=== PATIENT | female | born 1950 | race Caucasian/White ===

== ENCOUNTER 2018-11-11 12:45 | Day surgery (SDC) | payer OTHER ==
[2018-11-11] MEDS ORDERED: LIDOCAINE 1% 2 ML INJ ID PRN (13:12)
[2018-11-11] MEDS ORDERED: LR 1,000 ML IV ONE (13:12)
[2018-11-11] MEDS ORDERED: INDOMETHACIN 50 MG SUPP PR PRN (13:32)
--- NOTE | 2018-11-11 13:32 | PDGENHP ---
History & Physical Chief Complaint: biliary obstruction History of Present Illness: 68 year old female presents for jaundice, RUQ abdominal pain, weight loss, and nausea. Pertinent Past, Social, Family History: see aensthesiology notes for details. Relevant Physical Exam: HEENT: anicteric. CV: RRR +s1s2. Lungs: CTAB No w/r/ r. Abd: soft, nt, + bs Cardiorespiratory Assessment: ASA 3
[2018-11-11] MEDS ORDERED: NS 500 ML IV SCH (13:45)
[2018-11-11] MEDS ORDERED: fentaNYL 100 MCG/2 ML INJ ONE (13:48)
[2018-11-11] MEDS ORDERED: ROCURONIUM 50 MG/5 ML VIAL ONE (13:49)
[2018-11-11] MEDS ORDERED: REMIFENTANIL HCL 1 MG VIAL ONE (13:51)
[2018-11-11] MEDS ORDERED: PROPOFOL/EMULSION 500 MG/50 ML BOTTLE IV ONE (13:51)
--- NOTE | 2018-11-11 13:51 | PDANEPAE ---
ANE Past Medical History - Cardiovascular History Hx Hypertension: Yes Hx Arrhythmias: No Hx Chest Pain: No Hx Coronary Artery / Peripheral Vascular Disease: No Hx CHF / Valvular Disease: No Hx Palpitations: Yes Cardiovascular History Comment: palpitations with stress - Pulmonary History Hx COPD: No Hx Asthma/Reactive Airway Disease: No Hx Recent Upper Respiratory Infection: No Hx Oxygen in Use at Home: No Hx Sleep Apnea: No Sleep Apnea Screening Result - Last Documented: Negative Pulmonary History Comment: bronchitis - Neurologic History Hx Cerebrovascular Accident: No Hx Seizures: No Hx Dementia: No - Endocrine History Hx Diabetes: No Hypothyroid: No Hyperthyroid: No Obesity: yes, mild Endocrine History Comment: pre diabetic A1C 6.1 - Renal History Hx Renal Disorders: No - Liver History Hx Hepatic Disorders: No - Neurological & Psychiatric Hx Hx Neurological and Psychiatric Disorders: No - Cancer History Hx Cancer: Yes Cancer History Comment: left breast cancer with radiation, lumpectomy - Congenital Disorder History Hx Congenital Disorders: No - GI History GERD: moderate Hx Gastrointestinal Disorders: Yes Gastrointestinal History Comment: occ constipation, diarrhea, jaundice 1 week ago - Surgical History Prior Surgeries: bilat bunionectomies 1992, 1993, right ovary removed 1984, intrassuption as a baby ANE Review of Systems Review of Systems: - Exercise capacity Exercise capacity: >=4 METS METS (RN): 4 METS ANE Patient History - Allergies Allergies/Adverse Reactions: No Known Allergies Allergy (Unverified 11/11/18 13:21) - Home Medications Home Medications: Atenolol 11/11/18 [Last Taken 11/10/18 22:00] HCTZ (*) 11/11/18 [Last Taken 11/09/18] Omeprazole 11/11/18 [Last Taken 11/10/18 22:00] Potassium Chloride 11/11/18 [Last Taken 11/09/18] Sertraline HCl 11/11/18 [Last Taken 11/10/18 22:00] - NPO status NPO Since - Liquids (Date): 11/11/18 NPO Since - Liquids (Time): 11:45 NPO Since - Solids (Date): 11/10/18 NPO Since - Solids (Time): 21:30 - Anes Hx Anes Hx: no prior problems - Smoking Hx Smoking Status: Never smoked - Alcohol Use Alcohol Use: Rarely - Family Anes Hx Family Anes Hx: neg - N/A Family Hx Anesthesia Complications: none ANE Labs/Vital Signs - Vital Signs Blood Pressure: 131/71 Heart Rate: 76 Respiratory Rate: 16 O2 Sat (%): 94 Height: 165.1 cm Weight: 86.636 kg ANE Physical Exam - Airway Neck exam: FROM Mallampati Score: Class 2 Mouth exam: dentures - Pulmonary Pulmonary: no respiratory distress, no rales or rhonchi, clear to auscultation - Cardiovascular Cardiovascular: regular rate and rhythym, no murmur, rub, or gallop - ASA Status ASA Status: II ANE Anesthesia Plan Anesthesia Plan: general endotracheal anesthesia Total IV Anesthesia: No
[2018-11-11] MEDS ORDERED: LIDOCAINE 2% 2 ML INJ ONE ×2 (13:53)
[2018-11-11] MEDS ORDERED: INDOMETHACIN 50 MG SUPP PR ONE (14:03)
[2018-11-11] MEDS ORDERED: PHENYLEPHRINE HCL 100 MCG/ML SYR ONE (14:06)
[2018-11-11] MEDS ORDERED: ONDANSETRON 4 MG/2 ML VIAL ONE (14:07)
[2018-11-11] MEDS ORDERED: GLYCOPYRROLATE 0.2 MG/1 ML VIAL ONE ×3 (15:46)
[2018-11-11] MEDS ORDERED: NEOSTIGMINE METHYLSULFATE 10 MG/10 ML MDV ONE (15:46)
[2018-11-11] MEDS ORDERED: levOFLOXACIN 500 MG/DEXTROSE 100 ML IV ONE (16:01)
--- NOTE | 2018-11-11 16:01 | POSTANESTH ---
Post Anesthetic Evaluation Cardiovascular Status: Similar to Pre-Op Cond Respiratory Status: Similar to Pre-op Cond. Level of Consciousness/Mental Status: Can Participate in Eval Pain Control: Adequate, Prn Tx Ordered Nausea/Vomiting Control: Adequate, Prn Tx Ordered Complications Possibly Related to Anesthesia: None Noted
--- NOTE | 2018-11-11 17:08 | GIREPORT ---
[facility] - Endoscopy Department Patient Name: Obdulia Castano Procedure Date: 11/11/2018 1:27 PM Patient Type: Outpatient Attending MD/ ER Physician: Denton Finn MD Procedure: Upper EUS Indications: Common bile duct dilation (etiology unknown) seen on CT scan, Elevated liver enzymes, Abdominal pain in the right upper quadrant, Weight loss Patient Profile: 68 year old female presents for RUQ abdominal pain, weight loss, jaundi ce, and abnormal imaging. She has a dilated CBD on imaging. Providers: Denton Finn MD Medicines: General Anesthesia Complications: No immediate complications. Estimated blood loss: Minimal. Description of Procedure: After obtaining informed consent, the endoscope was passed under direct vision. Throughout the procedure, the patient's blood pressure, pulse, and oxygen saturations were monitored continuously. The Endosonoscope was introduced through the mouth, and advanced to the second part of duoden um. The Endoscope was introduced through the mouth, and advanced to the sec ond part of duodenum. The esophagus, stomach, and duodenum were visualized endosonographically. The upper EUS was accomplished without difficulty. The patient tolerated the procedure well. Findings: ENDOSCOPIC FINDING: : The examined esophagus was normal. A few sessile polyps were found in the gastric fundus. Biopsies were ta mai with a cold forceps for histology. A hiatal hernia was present. Patchy mildly erythematous mucosa was found in the gastric body and in the gastric antrum. Biopsies were taken with a cold forceps for histology. The examined duodenum was normal. ENDOSONOGRAPHIC FINDING: : One stone was visualized endosonographically in the gallbladder. The st one measured 20 mm in greatest dimension. The stone was round. It was hyperechoic and characterized by shadowing. In the distal CBD a small stone was seen in the distal CBD of 6mm. There appeared to be mild stricturing in the CHD area but this was diff icult to visualize due to her anatomy. There was no sign of significant endosonographic abnormality in the visualized portion of the liver. Pancreatic parenchymal abnormalities were noted in the entire pancreas. These consisted of hyperechoic foci. Estimated Blood Loss: Estimated blood loss was minimal. Post Op Diagnosis: - Normal esophagus. - Hiatal hernia. - Erythematous mucosa in the gastric body and antrum. Biopsied. - Normal examined duodenum. - One stone was visualized endosonographically in the gallbladder. - Small CBD stone of 6mm in the distal duct. - Possible stricture in the CHD? . - There was no evidence of significant pathology in the visualized port ion of the liver. - Pancreatic parenchymal abnormalities consisting of hyperechoic foci w ere noted in the entire pancreas. Recommendation: - Perform an ERCP today. - Await pathology results. - Thank you for allowing me to participate in the care of your patient. Attending Participation: I personally performed the entire procedure. Denton Finn MD Denton Finn MD 11/11/2018 5:08:08 PM This report has been signed electronicallyDenton Finn MD Number of Addenda: 0 Note Initiated On: 11/11/2018 1:27 PM [email or web address]
[2018-11-11 17:41] VITALS: BP 134/88
--- NOTE | 2018-11-12 03:27 | GIREPORT ---
[facility] - Endoscopy Department Patient Name: Obdulia Castano Procedure Date: 11/11/2018 2:21 PM Patient Type: Outpatient Attending MD/ ER Physician: Denton Finn MD Procedure: ERCP Indications: Bile duct stone(s) Patient Profile: 68 year old female presents for bilairy decompression. She has been experiencing weight loss as well as jaundice. Providers: Denton Finn MD Medicines: General Anesthesia, Indomethacin 100 mg TN Complications: No immediate complications. Estimated blood loss: Minimal. Description of Procedure: After obtaining informed consent, the scope was passed under direct vis ion. Throughout the procedure, the patient's blood pressure, pulse, and oxyg en saturations were monitored continuously. The Duodenalscope was introduc ed through the mouth, and advanced to the duodenum and used to inject cont rast into the bile duct. The ERCP was accomplished without difficulty. The patient tolerated the procedure well. Findings: The thread tool grinder set up operator film was normal. The esophagus was successfully intubated und er direct vision. The scope was advanced to a normal major papilla in the descending duodenum without detailed examination of the pharynx, larynx and associated structures, and upper GI tract. The upper GI tract was gross ly normal. A wire was passed into the biliary tree. The short-nosed tracti on sphincterotome was passed over the guidewire and the bile duct was then deeply cannulated. Contrast was injected. I personally interpreted the bile duct images. Ductal flow of contrast was adequate. Image quality was adequate. Contrast extended to the entire biliary tree. The common hepa tic duct area contained a single stricture with dilation upstream. A 6mm st one was also seen in the distal duct. A 10 mm biliary sphincterotomy was ma de with a traction (standard) sphincterotome using pure cut current. The sphincterotomy oozed blood. The biliary tree was swept with a 12 mm bal loon starting at the bifurcation. Sludge was swept from the duct. One stone was removed. No stones remained. The bile duct was explored endoscopically using the SpyGlass direct visualization system. The SpyGlass probe was advanc ed to the CHD area. Visibility with the probe was good. Abnormal mucosa characterized by erythema, ulcerations was found in the common hepatic duct. The upper third of the main bile duct was biopsied with a cold forceps for histology with Spybite forceps as well as pediatric forceps.. Cells for cytology were obtained by brushing . One 10 Fr by 9 cm temporary stent was placed into the common bile duct. Bile flowed through the stent. The st ent was in good position. Estimated Blood Loss: Estimated blood loss was minimal. Post Op Diagnosis: - A single biliary stricture was found in the common hepatic duct. - Choledocholithiasis was found. Complete removal was accomplished by biliary sphincterotomy and balloon extraction. - A biliary sphincterotomy was performed. - The biliary tree was swept. - Biopsy was performed in the area of the common hepatic duct. - Cells for cytology obtained at the hepatic duct bifurcation. - One temporary stent was placed into the common bile duct. - Etiology? Cholangiocarcinoma vs inflammatorty strictture? Await pathologyand cytology results. Repeat ERCP in 6 weeks if results are no t diagnostic. Recommendation: - Discharge patient to home (with escort). - Clear liquid diet. - Continue present medications. - Await cytology results and await path results. - Repeat ERCP in 6 weeks for surveillance. - Thank you for allowing me to participate in the care of your patient. Attending Participation: I personally performed the entire procedure. Denton Finn MD Denton Finn MD 11/12/2018 3:27:30 AM This report has been signed electronicallyDenton Finn MD Number of Addenda: 0 Note Initiated On: 11/11/2018 2:21 PM [email or web address]
== END 2018-11-11 17:43 | disposition home or self-care (01) ==
LOC: FSGY 12:45
PROVIDERS: ATTEND Internal Medicine Gastroenterology
PROC: 0FHB8DZ Insertion of Intraluminal Device into Hepatobiliary Duct, Via Natural or Artificial Opening Endoscopic (ICD-10-PCS; principal; 2018-11-11 14:15)
PROC: 0FC98ZZ Extirpation of Matter from Common Bile Duct, Via Natural or Artificial Opening Endoscopic (ICD-10-PCS; principal; 2018-11-11 14:15)
PROC: 0F778ZZ Dilation of Common Hepatic Duct, Via Natural or Artificial Opening Endoscopic (ICD-10-PCS; principal; 2018-11-11 14:15)
PROC: 0FB78ZX Excision of Common Hepatic Duct, Via Natural or Artificial Opening Endoscopic, Diagnostic (ICD-10-PCS; principal; 2018-11-11 14:15)
DX: C22.1 Intrahepatic bile duct carcinoma (principal); K80.51 Calculus of bile duct without cholangitis or cholecystitis with obstruction; K31.7 Polyp of stomach and duodenum; I10 Essential (primary) hypertension; R73.03 Prediabetes; Z85.3 Personal history of malignant neoplasm of breast
CPT/HCPCS: C2625; J1956; J2370; J2405; J2704; J3010